=== PATIENT | male | born 1955 | race African-American/Black ===

== ENCOUNTER 2016-09-01 08:05 | Day surgery (SDC) | payer OTHER ==
[~2016-09-01] VITALS: Ht 160 cm; Wt 75.0 kg
[~2016-09-01 08:05] MED LIST: ASPI-1093 PO; LISI-660 PO; PROPOFOL 1% 20 ML VIAL IVP ONE
[2016-09-01] MEDS ORDERED: SODIUM CHLORIDE 0.9% 1,000 ML IV ONE ×2 (08:08→08:30)
[2016-09-01] MEDS ORDERED: FERR-89 PO (08:18)
[2016-09-01] MEDS ORDERED: LISI1TAB9 PO (08:18)
[2016-09-01] MEDS ORDERED: VITAD1000 PO (08:18)
[2016-09-01] MEDS ORDERED: MIDAZOLAM HCL 5 MG/ML VIAL ONE (09:52)
[2016-09-01] MEDS ORDERED: FentaNYL CITRATE-PF 100 MCG/2 ML VIAL ONE (09:52)
[2016-09-01] MEDS ORDERED: LIDOCAINE HCL 2% VISCOUS 15 ML SOLUTION UDCUP PO ONE (10:00)
== END 2016-09-01 11:35 | disposition home or self-care (01) ==
LOC: SURGERY 08:05
PROVIDERS: ATTEND Internal Medicine Gastroenterology
DX: K29.70 Gastritis, unspecified, without bleeding (principal); K44.9 Diaphragmatic hernia without obstruction or gangrene; D64.9 Anemia, unspecified; J45.909 Unspecified asthma, uncomplicated; F17.200 Nicotine dependence, unspecified, uncomplicated; Z88.0 Allergy status to penicillin; Z72.89 Other problems related to lifestyle; Z86.79 Personal history of other diseases of the circulatory system
CPT/HCPCS: 88305; 88312; J2250; J2704; J3010; J7030

== ENCOUNTER 2016-09-07 15:26 | Inpatient (IN) | payer OTHER ==
[~2016-09-07] VITALS: Ht 160 cm; Wt 93.6 kg
[~2016-09-07 15:26] MED LIST changes: +FERR-89 PO; -LISI-660 PO; +LISI1TAB9 PO; -PROPOFOL 1% 20 ML VIAL IVP ONE; +VITAD1000 PO
[2016-09-07] MEDS ORDERED: HEPARIN SODIUM 25000 UNITS/D5W 250 ML IV PRN ×2 (17:39→21:00)
[2016-09-07] MEDS ORDERED: HEPARIN SODIUM,PORCINE 5,000 UNITS/ML VIAL IVP ONE ×2 (17:45)
[2016-09-07] MEDS ORDERED: HEPARIN SODIUM,PORCINE 5,000 UNITS/ML VIAL IVP PRN ×4 (17:45→21:00)
[2016-09-07 18:01] LABS: BASOPHILS % (AUTO) 0.6 % (0.0-2.0); EOSINOPHILS % (AUTO) 1.7 % (1.0-6.0); HEMATOCRIT 25.2 % (41-53); HEMOGLOBIN 7.6 g/dL (13.5-17.5); LYMPHOCYTES # (AUTO) 1.7 K/uL (1.0-4.8); LYMPHOCYTES % (AUTO) 11.8 % (22.0-44.0); MEAN CORPUSCULAR HEMOGLOBIN 20.5 pg (26.0-34.0); MEAN CORPUSCULAR HGB CONC 30.1 G/dL (31.0-37.0); MEAN CORPUSCULAR VOLUME 68 fL (80-100); MONOCYTES # (AUTO) 1.1 K/uL (0.1-1.0); MONOCYTES % (AUTO) 7.7 % (2.0-9.0); NEUTROPHILS # (AUTO) 11.3 K/uL (1.8-7.7); NEUTROPHILS % (AUTO) 78.2 % (40.0-70.0); PLATELET COUNT (AUTO) 333 K/uL (150-450); WHITE BLOOD COUNT (AUTO) 14.5 K/uL (4.5-11.0)
[2016-09-07 18:18] LABS: INR 1.1 (0.9-1.1); PROTHROMBIN TIME 11.5 SEC (9.4-11.6)
[2016-09-07 18:20] LABS: CALCIUM, TOTAL 10.1 mg/dL (8.8-10.5); CREATININE 1.45 mg/dL (0.60-1.30); POTASSIUM 4.7 mmol/L (3.5-5.1)
[2016-09-07 18:25] LABS: ALBUMIN 2.9 g/dL (3.4-5.0); BILIRUBIN,TOTAL 0.2 mg/dL (0.1-1.0); TOTAL PROTEIN, SERUM 7.7 g/dL (6.4-8.2)
[2016-09-07] MEDS ORDERED: ACETAMINOPHEN 325 MG TABLET PO PRN ×2 (19:30→21:00)
[2016-09-07] MEDS ORDERED: ONDANSETRON HCL 4 MG/2 ML VIAL IVP PRN (19:30)
[2016-09-07] MEDS ORDERED: 0.9% SODIUM CHLORIDE 10 ML SYRINGE IVP PRN (19:30)
[2016-09-07 20:42] VITALS: BP 125/71
[2016-09-07] MEDS ORDERED: MAGNESIUM HYDROXIDE SUSPENSION 30 ML UDCUP PO PRN (21:00)
[2016-09-07] MEDS ORDERED: ALBUTEROL SULFATE 2.5 MG/0.5 ML NEB SOLUTION NEB PRN (21:00)
[2016-09-07] MEDS: PANTOPRAZOLE SODIUM 40 MG/VIAL IVP SCH (21:39)
[2016-09-07] MEDS: DOCUSATE SODIUM 100 MG CAPSULE PO SCH (21:39)
[2016-09-07 22:15] VITALS: BP 110/73
[2016-09-08 04:24] VITALS: BP 109/72
[2016-09-08] MEDS: OxyCODONE HCL/ACETAMINOPHEN 5-325 MG TABLET PO PRN ×3 (05:28→20:24)
[2016-09-08 06:34] LABS: BASOPHILS % (AUTO) 0.5 % (0.0-2.0); EOSINOPHILS % (AUTO) 1.2 % (1.0-6.0); HEMATOCRIT 24.3 % (41-53); HEMOGLOBIN 7.1 g/dL (13.5-17.5); LYMPHOCYTES # (AUTO) 1.4 K/uL (1.0-4.8); LYMPHOCYTES % (AUTO) 11.3 % (22.0-44.0); MEAN CORPUSCULAR HEMOGLOBIN 20.1 pg (26.0-34.0); MEAN CORPUSCULAR HGB CONC 29.4 G/dL (31.0-37.0); MEAN CORPUSCULAR VOLUME 69 fL (80-100); MONOCYTES # (AUTO) 1.1 K/uL (0.1-1.0); MONOCYTES % (AUTO) 8.5 % (2.0-9.0); NEUTROPHILS # (AUTO) 9.9 K/uL (1.8-7.7); NEUTROPHILS % (AUTO) 78.5 % (40.0-70.0); PLATELET COUNT (AUTO) 360 K/uL (150-450); RED BLOOD CELL COUNT(AUTO) 3.54 MIL/uL (4.50-5.90); RED CELL DISTRIBUTION WIDTH 25.3 % (11.5-14.5); WHITE BLOOD COUNT (AUTO) 12.6 K/uL (4.5-11.0)
[2016-09-08 07:57] VITALS: BP 103/60
[2016-09-08] MEDS: DOCUSATE SODIUM 100 MG CAPSULE PO SCH ×2 (08:19→20:22)
[2016-09-08] MEDS: PANTOPRAZOLE SODIUM 40 MG/VIAL IVP SCH (08:19)
[2016-09-08] MEDS: FERROUS SULFATE 325 MG EC TABLET PO SCH ×3 (08:19→18:09)
[2016-09-08 09:46] LABS: RBC MORPHOLOGY COMMENT ABNORMAL RBC MORPH
[2016-09-08 09:53] LABS: ANION GAP 8 mmol/L (8-16); CALCIUM, TOTAL 9.6 mg/dL (8.8-10.5); CARBON DIOXIDE 29 mmol/L (22-29); CHLORIDE 100 mmol/L (98-107); CREATININE 1.26 mg/dL (0.60-1.30); GLOMERULAR FILTR. RATE CALC > 60 mL/min (>60); POTASSIUM 4.8 mmol/L (3.5-5.1); SODIUM SERUM 137 mmol/L (136-145); UREA NITROGEN, BLOOD 26 mg/dL (7-18)
[2016-09-08 12:16] VITALS: BP 103/69
[2016-09-08] MEDS ORDERED: IOVERSOL 350 MG/ML 100 ML VIAL ONE (12:27)
[2016-09-08] MEDS ORDERED: SODIUM CHLORIDE 0.9% 100 ML ONE (12:27)
[2016-09-08] MEDS ORDERED: BARIUM SULFATE 0.1% SUSPENSION 450 ML BOTTLE ONE (12:27)
[2016-09-08] MEDS: APIXABAN 5 MG TABLET PO SCH ×2 (13:00→18:09)
[2016-09-08 15:36] VITALS: BP 105/58
[2016-09-08 19:55] VITALS: BP 103/69
[2016-09-08 23:25] VITALS: BP 97/66
[2016-09-09 04:15] VITALS: BP 110/72
[2016-09-09 07:01] LABS: BASOPHILS % (AUTO) 0.1 % (0.0-2.0); EOSINOPHILS % (AUTO) 2.2 % (1.0-6.0); HEMATOCRIT 24.4 % (41-53); HEMOGLOBIN 7.3 g/dL (13.5-17.5); LYMPHOCYTES # (AUTO) 1.6 K/uL (1.0-4.8); LYMPHOCYTES % (AUTO) 13.5 % (22.0-44.0); MEAN CORPUSCULAR HEMOGLOBIN 20.5 pg (26.0-34.0); MEAN CORPUSCULAR HGB CONC 29.8 G/dL (31.0-37.0); MEAN CORPUSCULAR VOLUME 69 fL (80-100); MONOCYTES # (AUTO) 1.1 K/uL (0.1-1.0); NEUTROPHILS # (AUTO) 9.2 K/uL (1.8-7.7); NEUTROPHILS % (AUTO) 75.2 % (40.0-70.0); PLATELET COUNT (AUTO) 350 K/uL (150-450); RED BLOOD CELL COUNT(AUTO) 3.55 MIL/uL (4.50-5.90); RED CELL DISTRIBUTION WIDTH 25.3 % (11.5-14.5); WHITE BLOOD COUNT (AUTO) 12.2 K/uL (4.5-11.0)
[2016-09-09 07:10] VITALS: BP 105/67
[2016-09-09] MEDS: APIXABAN 5 MG TABLET PO SCH (07:10)
[2016-09-09 07:14] LABS: RBC MORPHOLOGY COMMENT ABNORMAL RBC MORPH
[2016-09-09] MEDS: FERROUS SULFATE 325 MG EC TABLET PO SCH ×3 (07:54→18:01)
[2016-09-09] MEDS: DOCUSATE SODIUM 100 MG CAPSULE PO SCH ×2 (07:54→20:32)
[2016-09-09] MEDS: PANTOPRAZOLE SODIUM 40 MG/VIAL IVP SCH (07:54)
[2016-09-09] MEDS: OxyCODONE HCL/ACETAMINOPHEN 5-325 MG TABLET PO PRN ×2 (09:49→15:55)
[2016-09-09 11:00] VITALS: BP 96/62
[2016-09-09 15:03] VITALS: BP 103/76
[2016-09-09] MEDS ORDERED: SOD FERRIC GLUC COMPLX/SUCROSE 125 MG in SODIUM CHLORIDE 0.9% 100 ML IV SCH (18:00)
[2016-09-09] MEDS ORDERED: SODIUM CHLORIDE 0.9% 250 ML IV ONE (18:06)
[2016-09-09 19:35] VITALS: BP 98/65
[2016-09-09] MEDS ORDERED: ENOXAPARIN SODIUM 80 MG/0.8 ML PF SYRINGE SQ SCH (21:00)
[2016-09-09 23:00] VITALS: BP 105/69
[2016-09-10 04:13] VITALS: BP 103/58
[2016-09-10 07:20] VITALS: BP 108/68
[2016-09-10 11:00] VITALS: BP 106/79
[2016-09-10] MEDS: FERROUS SULFATE 325 MG EC TABLET PO SCH ×2 (12:00→13:27)
[2016-09-10] MEDS ORDERED: SODIUM CHLORIDE 0.9% 1,000 ML IV ONE (12:13)
[2016-09-10] MEDS: OxyCODONE HCL/ACETAMINOPHEN 5-325 MG TABLET PO PRN (13:27)
[2016-09-10] MEDS: DOCUSATE SODIUM 100 MG CAPSULE PO SCH (13:27)
[2016-09-10] MEDS: PANTOPRAZOLE SODIUM 40 MG/VIAL IVP SCH (13:27)
[2016-09-10] MEDS ORDERED: ENOXAPARIN SODIUM 80 MG/0.8 ML PF SYRINGE SQ ONE (13:45)
[2016-09-10] MEDS ORDERED: ENOX80DI9 SQ (16:12)
[2016-09-10] MEDS ORDERED: DSS100 PO (16:30)
[2016-09-10] MEDS ORDERED: HYDR-309 PO (16:30)
[2016-09-10 16:37] LABS: CARCINOEMBRYONIC AG 28.3 ng/mL (0.0-4.7)
[2016-09-10] MEDS ORDERED: PHENYLEPHRINE HCL 10 MG/ML VIAL IVP ONE (17:19)
[2016-09-10] MEDS ORDERED: LIDOCAINE HCL/PF 2% 5 ML VIAL INJ ONE (17:19)
== END 2016-09-10 17:20 | disposition home or self-care (01) | DRG 374 ==
LOC: EMS 15:27 → EEVIPCON 17:56 → 5S 17:56 → 6N 22:15
PROVIDERS: ADMIT Internal Medicine; ATTEND Internal Medicine
PROC: 0DBA8ZX Excision of Jejunum, Via Natural or Artificial Opening Endoscopic, Diagnostic (ICD-10-PCS; 2016-09-10)
PROC: 0DB98ZX Excision of Duodenum, Via Natural or Artificial Opening Endoscopic, Diagnostic (ICD-10-PCS; principal; 2016-09-10 10:30)
DX: C17.0 Malignant neoplasm of duodenum (principal); I26.99 Other pulmonary embolism without acute cor pulmonale; I82.401 Acute embolism and thrombosis of unspecified deep veins of right lower extremity; C78.7 Secondary malignant neoplasm of liver and intrahepatic bile duct; D50.9 Iron deficiency anemia, unspecified; D72.829 Elevated white blood cell count, unspecified; K63.89 Other specified diseases of intestine; I10 Essential (primary) hypertension; F17.210 Nicotine dependence, cigarettes, uncomplicated; E04.2 Nontoxic multinodular goiter; R31.0 Gross hematuria; R63.4 Abnormal weight loss; Z68.36 Body mass index [BMI] 36.0-36.9, adult; Z79.82 Long term (current) use of aspirin; Z88.0 Allergy status to penicillin; Z79.899 Other long term (current) drug therapy; Z71.6 Tobacco abuse counseling; Z80.3 Family history of malignant neoplasm of breast; Z80.0 Family history of malignant neoplasm of digestive organs
CPT/HCPCS: 71260; 72193; 74160; 82105; 82378; 82728; 83540; 83550; 86301; 93005; 93971; 96365; 96375; 99285; 99406; C9113; J1644; J1650; J2370; J2916; J3490; J7030; J7050

== ENCOUNTER → 2016-09-13 | Outpatient (CLI) | payer OTHER ==
[~2016-09-13] MED LIST changes: +DSS100 PO; +ENOX80DI9 SQ; +HYDR-309 PO
[2016-09-13 15:25] LABS: BASOPHILS % (AUTO) 0.4 % (0.0-2.0); EOSINOPHILS % (AUTO) 1.4 % (1.0-6.0); HEMATOCRIT 28.7 % (41-53); HEMOGLOBIN 8.3 g/dL (13.5-17.5); LYMPHOCYTES # (AUTO) 2.9 K/uL (1.0-4.8); LYMPHOCYTES % (AUTO) 17.4 % (22.0-44.0); MEAN CORPUSCULAR HEMOGLOBIN 20.3 pg (26.0-34.0); MEAN CORPUSCULAR VOLUME 70 fL (80-100); MONOCYTES # (AUTO) 0.9 K/uL (0.1-1.0); MONOCYTES % (AUTO) 5.7 % (2.0-9.0); NEUTROPHILS # (AUTO) 12.3 K/uL (1.8-7.7); NEUTROPHILS % (AUTO) 75.1 % (40.0-70.0); PLATELET COUNT (AUTO) 598 K/uL (150-450); RED BLOOD CELL COUNT(AUTO) 4.09 MIL/uL (4.50-5.90); WHITE BLOOD COUNT (AUTO) 16.4 K/uL (4.5-11.0)
== END | disposition home or self-care (01) ==
LOC: LABPV 13:33
PROVIDERS: ATTEND Internal Medicine
DX: I26.99 Other pulmonary embolism without acute cor pulmonale (principal); I82.401 Acute embolism and thrombosis of unspecified deep veins of right lower extremity

== ENCOUNTER 2016-12-25 12:56 | Inpatient (IN) | payer MEDICAID, OTHER ==
[~2016-12-25] VITALS: Ht 167.6 cm; Wt 57.1 kg
[2016-12-25] MEDS ORDERED: BARIUM SULFATE 0.1% SUSPENSION 450 ML BOTTLE PO ONE (13:30)
[2016-12-25] MEDS ORDERED: ONDANSETRON HCL 4 MG/2 ML VIAL IVP ONE ×2 (13:30→15:45)
[2016-12-25] MEDS ORDERED: FAMOTIDINE 10 MG/ML 2 ML VIAL IVP ONE (13:30)
[2016-12-25] MEDS ORDERED: SODIUM CHLORIDE 0.9% 1,000 ML IV ONE (13:30)
[2016-12-25 13:51] LABS: BASOPHILS # (AUTO) 0.05 K/uL (0.00-0.20); BASOPHILS % (AUTO) 0.4 % (0.0-2.0); EOSINOPHILS # (AUTO) 0.07 K/uL (0.00-0.70); EOSINOPHILS % (AUTO) 0.57 % (1.0-6.0); HEMATOCRIT 43.6 % (41-53); HEMOGLOBIN 13.3 g/dL (13.5-17.5); LYMPHOCYTES # (AUTO) 1.3 K/uL (1.0-4.8); LYMPHOCYTES % (AUTO) 10.1 % (22.0-44.0); MEAN CORPUSCULAR HGB CONC 30.5 G/dL (31.0-37.0); MEAN CORPUSCULAR VOLUME 79 fL (80-100); MONOCYTES # (AUTO) 1.5 K/uL (0.1-1.0); MONOCYTES % (AUTO) 11.5 % (2.0-9.0); NEUTROPHILS # (AUTO) 9.8 K/uL (1.8-7.7); NEUTROPHILS % (AUTO) 77.5 % (40.0-70.0); PLATELET COUNT (AUTO) 542 K/uL (150-450); RED BLOOD CELL COUNT(AUTO) 5.54 MIL/uL (4.50-5.90); RED CELL DISTRIBUTION WIDTH 34.6 % (11.5-14.5); WHITE BLOOD COUNT (AUTO) 12.7 K/uL (4.5-11.0)
[2016-12-25 14:02] LABS: INR 1.1 (0.9-1.1); PROTHROMBIN TIME 11.1 SEC (9.4-11.6)
[2016-12-25] MEDS ORDERED: METOCLOPRAMIDE HCL 5 MG/ML 2 ML VIAL IVP ONE (14:15)
[2016-12-25] MEDS ORDERED: IOVERSOL 350 MG/ML 150 ML VIAL ONE (14:15)
[2016-12-25] MEDS ORDERED: SODIUM CHLORIDE 0.9% 100 ML ONE (14:15)
[2016-12-25 14:48] LABS: ANION GAP 5 mmol/L (8-16); CALCIUM, TOTAL 9.9 mg/dL (8.8-10.5); CARBON DIOXIDE 37 mmol/L (22-29); CHLORIDE 99 mmol/L (98-107); CREATININE 1.22 mg/dL (0.60-1.30); GLOMERULAR FILTR. RATE CALC > 60 mL/min (>60); POTASSIUM 3.9 mmol/L (3.5-5.1); SODIUM SERUM 141 mmol/L (136-145); UREA NITROGEN, BLOOD 14 mg/dL (7-18)
[2016-12-25 15:02] LABS: ALANINE AMINOTRANSFERASE 37 U/L (12-78); ALBUMIN 2.9 g/dL (3.4-5.0); ASPARTATE AMINOTRANSFERASE 40 U/L (15-37); BILIRUBIN,TOTAL 0.4 mg/dL (0.1-1.0); TOTAL PROTEIN, SERUM 7.9 g/dL (6.4-8.2)
[2016-12-25 19:16] LABS: APPEARANCE,URINE CLEAR (CLEAR); GLUCOSE, URINE (UA) NEGATIVE (NEGATIVE); KETONES,URINE NEGATIVE (NEGATIVE); LEUKOCYTE ESTERASE ,URINE NEGATIVE (NEGATIVE); OCCULT BLOOD,URINE NEGATIVE (NEGATIVE); PROTEIN,URINE POS 1+ (NEGATIVE)
[2016-12-25 19:32] LABS: ADD UA MICROSCOPIC NO
[2016-12-25 20:30] VITALS: BP 106/78
[2016-12-25] MEDS ORDERED: ACETAMINOPHEN 325 MG TABLET PO PRN (20:45)
[2016-12-25] MEDS ORDERED: ALBUTEROL SULFATE 2.5 MG/0.5 ML NEB SOLUTION NEB PRN (20:45)
[2016-12-25] MEDS ORDERED: BISACODYL 10 MG RECTAL RECTAL SUPPOSITORY PR PRN (20:45)
[2016-12-25] MEDS: PANTOPRAZOLE SODIUM 40 MG/VIAL IVP SCH (21:23)
[2016-12-25] MEDS: MAGNESIUM HYDROXIDE SUSPENSION 30 ML UDCUP PO PRN (21:23)
[2016-12-25] MEDS: ENOXAPARIN SODIUM 40 MG/0.4 ML PF SYRINGE SQ SCH (21:24)
[2016-12-25] MEDS: SODIUM CHLORIDE 0.9% 1,000 ML IV SCH (21:24)
[2016-12-25] MEDS: DOCUSATE SODIUM 100 MG CAPSULE PO SCH (21:24)
[2016-12-25 23:27] VITALS: BP 101/69
[2016-12-26] MEDS: ONDANSETRON HCL 4 MG/2 ML VIAL IVP PRN ×3 (03:03→20:04)
[2016-12-26] MEDS: MORPHINE SULFATE 4 MG/ML SYRINGE IVP PRN ×3 (03:09→20:04)
[2016-12-26 04:50] VITALS: BP 110/74
[2016-12-26 06:07] LABS: BASOPHILS % (AUTO) 0.5 % (0.0-2.0); EOSINOPHILS % (AUTO) 0.6 % (1.0-6.0); HEMATOCRIT 42.4 % (41-53); HEMOGLOBIN 12.7 g/dL (13.5-17.5); LYMPHOCYTES # (AUTO) 1.2 K/uL (1.0-4.8); LYMPHOCYTES % (AUTO) 9.6 % (22.0-44.0); MEAN CORPUSCULAR HEMOGLOBIN 23.9 pg (26.0-34.0); MEAN CORPUSCULAR VOLUME 80 fL (80-100); MONOCYTES # (AUTO) 1.8 K/uL (0.1-1.0); MONOCYTES % (AUTO) 14.2 % (2.0-9.0); NEUTROPHILS # (AUTO) 9.6 K/uL (1.8-7.7); NEUTROPHILS % (AUTO) 75.1 % (40.0-70.0); PLATELET COUNT (AUTO) 552 K/uL (150-450); RED BLOOD CELL COUNT(AUTO) 5.32 MIL/uL (4.50-5.90); RED CELL DISTRIBUTION WIDTH 34.3 % (11.5-14.5); WHITE BLOOD COUNT (AUTO) 12.8 K/uL (4.5-11.0)
[2016-12-26 06:25] LABS: ALANINE AMINOTRANSFERASE 33 U/L (12-78); ALBUMIN 2.8 g/dL (3.4-5.0); ANION GAP 6 mmol/L (8-16); ASPARTATE AMINOTRANSFERASE 39 U/L (15-37); BILIRUBIN,TOTAL 0.4 mg/dL (0.1-1.0); CALCIUM, TOTAL 9.7 mg/dL (8.8-10.5); CARBON DIOXIDE 35 mmol/L (22-29); CHLORIDE 99 mmol/L (98-107); CREATININE 1.26 mg/dL (0.60-1.30); GLOMERULAR FILTR. RATE CALC > 60 mL/min (>60); POTASSIUM 3.6 mmol/L (3.5-5.1); SODIUM SERUM 140 mmol/L (136-145); TOTAL PROTEIN, SERUM 7.9 g/dL (6.4-8.2); UREA NITROGEN, BLOOD 15 mg/dL (7-18)
[2016-12-26 07:12] VITALS: BP 108/75
[2016-12-26] MEDS: PANTOPRAZOLE SODIUM 40 MG/VIAL IVP SCH (08:56)
[2016-12-26] MEDS: DOCUSATE SODIUM 100 MG CAPSULE PO SCH ×2 (08:57→20:04)
[2016-12-26] MEDS: ENOXAPARIN SODIUM 40 MG/0.4 ML PF SYRINGE SQ SCH ×2 (08:57→20:05)
[2016-12-26 11:24] VITALS: BP 110/77
[2016-12-26 11:28] LABS: RBC MORPHOLOGY COMMENT ABNORMAL RBC MORPH
[2016-12-26] MEDS: SODIUM CHLORIDE 0.9% 1,000 ML IV SCH (11:29)
[2016-12-26] MEDS: MAGNESIUM HYDROXIDE SUSPENSION 30 ML UDCUP PO PRN (15:01)
[2016-12-26 15:10] VITALS: BP 103/70
[2016-12-26 19:20] VITALS: BP 108/72
[2016-12-26] MEDS: DEXTROSE 5%-0.45% SODIUM CHL 1,000 ML IV SCH (22:18)
[2016-12-26 23:11] VITALS: BP_SYST 12; BP_SYST 122; BP_DIAS 83
[2016-12-27 04:47] VITALS: BP 104/72
[2016-12-27 07:42] VITALS: BP 110/74
[2016-12-27] MEDS: ENOXAPARIN SODIUM 40 MG/0.4 ML PF SYRINGE SQ SCH ×2 (07:56→20:28)
[2016-12-27] MEDS: DOCUSATE SODIUM 100 MG CAPSULE PO SCH ×2 (07:56→20:26)
[2016-12-27] MEDS: ONDANSETRON HCL 4 MG/2 ML VIAL IVP PRN (07:56)
[2016-12-27] MEDS: PANTOPRAZOLE SODIUM 40 MG/VIAL IVP SCH (07:56)
[2016-12-27] MEDS: MORPHINE SULFATE 4 MG/ML SYRINGE IVP PRN (11:05)
[2016-12-27] MEDS: DEXTROSE 5%-0.45% SODIUM CHL 1,000 ML IV SCH (11:13)
[2016-12-27 11:32] VITALS: BP 126/59
[2016-12-27 16:39] VITALS: BP 106/70
[2016-12-27 19:24] VITALS: BP 108/68
[2016-12-27 23:43] VITALS: BP 104/69
[2016-12-28] MEDS: DEXTROSE 5%-0.45% SODIUM CHL 1,000 ML IV SCH ×2 (01:50→20:53)
[2016-12-28 05:28] VITALS: BP 114/75
[2016-12-28 06:06] LABS: ALANINE AMINOTRANSFERASE 26 U/L (12-78); ALBUMIN 2.2 g/dL (3.4-5.0); ANION GAP 3 mmol/L (8-16); ASPARTATE AMINOTRANSFERASE 38 U/L (15-37); BILIRUBIN,TOTAL 0.3 mg/dL (0.1-1.0); CALCIUM, TOTAL 8.1 mg/dL (8.8-10.5); CARBON DIOXIDE 33 mmol/L (22-29); CHLORIDE 99 mmol/L (98-107); CREATININE 1.07 mg/dL (0.60-1.30); GLOMERULAR FILTR. RATE CALC > 60 mL/min (>60); POTASSIUM 3.2 mmol/L (3.5-5.1); SODIUM SERUM 135 mmol/L (136-145); TOTAL PROTEIN, SERUM 6.3 g/dL (6.4-8.2); UREA NITROGEN, BLOOD 9 mg/dL (7-18)
[2016-12-28 07:41] VITALS: BP 101/73
[2016-12-28] MEDS ORDERED: POTASSIUM CHLORIDE 20 MEQ ER TABLET PO PRN (08:00)
[2016-12-28] MEDS: PANTOPRAZOLE SODIUM 40 MG/VIAL IVP SCH (08:19)
[2016-12-28] MEDS: POTASSIUM CHL 10 MEQ/WATER 50 ML IV PRN ×4 (08:36→22:00)
[2016-12-28] MEDS: DOCUSATE SODIUM 100 MG CAPSULE PO SCH ×2 (09:00→20:53)
[2016-12-28] MEDS: ONDANSETRON HCL 4 MG/2 ML VIAL IVP PRN ×2 (11:41→20:53)
[2016-12-28] MEDS: ENOXAPARIN SODIUM 40 MG/0.4 ML PF SYRINGE SQ SCH (11:42)
[2016-12-28 11:49] VITALS: BP 127/85
[2016-12-28] MEDS ORDERED: FentaNYL CITRATE-PF 100 MCG/2 ML VIAL ONE ×2 (14:50→18:17)
[2016-12-28] MEDS ORDERED: MIDAZOLAM HCL 2 MG/2 ML VIAL ONE (14:51)
[2016-12-28 14:56] LABS: INR 1.1 (0.9-1.1); PROTHROMBIN TIME 11.4 SEC (9.4-11.6)
[2016-12-28 15:03] VITALS: BP 122/83
[2016-12-28] MEDS ORDERED: LIDOCAINE HCL/PF 1% 30 ML VIAL ONE ×2 (15:20→17:59)
[2016-12-28] MEDS ORDERED: IOHEXOL 240 MG/ML 50 ML VIAL ONE (15:20)
[2016-12-28] MEDS ORDERED: HEPARIN SODIUM 1000 UNITS/NS 500 ML ONE (15:20)
[2016-12-28] MEDS ORDERED: FLUMAZENIL 0.1 MG/ML 5 ML VIAL IVP ONE (15:57)
[2016-12-28] MEDS ORDERED: NALOXONE HCL 0.4 MG/ML VIAL ONE (15:57)
[2016-12-28] MEDS ORDERED: MIDAZOLAM HCL 2 MG/2 ML VIAL IVP ONE (16:50)
[2016-12-28] MEDS ORDERED: GELATIN SPONGE,ABSORBABLE 12-7 MM TP ONE ×2 (17:45→17:46)
[2016-12-28] MEDS ORDERED: HYDROmorphone 2 MG/ML SYRINGE IVP ONE (17:47)
[2016-12-28] MEDS ORDERED: IOHEXOL 300 MG/ML 10 ML VIAL ONE (17:51)
[2016-12-28] MEDS ORDERED: IOHEXOL 180 MG/ML 20 ML VIAL ONE ×3 (17:51→18:10)
[2016-12-28] MEDS ORDERED: FentaNYL CITRATE-PF 100 MCG/2 ML VIAL IVP ONE (18:19)
[2016-12-28 19:40] VITALS: BP 96/66
[2016-12-28 20:54] VITALS: BP 113/73
[2016-12-28] MEDS: HYDROmorphone 2 MG/ML SYRINGE IVP PRN (20:54)
[2016-12-28] MEDS: ENOXAPARIN SODIUM 60 MG/0.6 ML PF SYRINGE SQ SCH (22:09)
[2016-12-29] VITALS (7 sets, daily range): BP systolic 10–103; BP diastolic 62–79
[2016-12-29] MEDS: POTASSIUM CHL 10 MEQ/WATER 50 ML IV PRN ×2 (00:06→01:50)
[2016-12-29] MEDS: HYDROmorphone 2 MG/ML SYRINGE IVP PRN ×7 (02:48→19:48)
[2016-12-29] MEDS: CIPROFLOXACIN 400 MG/D5% WATER 200 ML IV SCH ×3 (04:44→15:59)
[2016-12-29] MEDS: ONDANSETRON HCL 4 MG/2 ML VIAL IVP PRN ×3 (08:04→22:06)
[2016-12-29] MEDS: ENOXAPARIN SODIUM 60 MG/0.6 ML PF SYRINGE SQ SCH ×2 (08:07→19:47)
[2016-12-29] MEDS: PANTOPRAZOLE SODIUM 40 MG/VIAL IVP SCH (08:07)
[2016-12-29] MEDS: DOCUSATE SODIUM 100 MG CAPSULE PO SCH ×2 (08:07→19:47)
[2016-12-29] MEDS: DEXTROSE 5%-0.45% SODIUM CHL 1,000 ML IV SCH (11:00)
[2016-12-30] MEDS: HYDROmorphone 2 MG/ML SYRINGE IVP PRN ×7 (00:02→23:55)
[2016-12-30] MEDS: DEXTROSE 5%-0.45% SODIUM CHL 1,000 ML IV SCH (00:03)
[2016-12-30 00:17] VITALS: BP 87/62
[2016-12-30] MEDS: ONDANSETRON HCL 4 MG/2 ML VIAL IVP PRN ×3 (03:42→16:45)
[2016-12-30] MEDS: CIPROFLOXACIN 400 MG/D5% WATER 200 ML IV SCH ×2 (03:42→15:07)
[2016-12-30 06:00] LABS: ALANINE AMINOTRANSFERASE 26 U/L (12-78); ALBUMIN 2.3 g/dL (3.4-5.0); ANION GAP 3 mmol/L (8-16); ASPARTATE AMINOTRANSFERASE 33 U/L (15-37); BILIRUBIN,TOTAL 0.6 mg/dL (0.1-1.0); CARBON DIOXIDE 31 mmol/L (22-29); CHLORIDE 97 mmol/L (98-107); GLOMERULAR FILTR. RATE CALC > 60 mL/min (>60); POTASSIUM 3.8 mmol/L (3.5-5.1); SODIUM SERUM 131 mmol/L (136-145); TOTAL PROTEIN, SERUM 6.7 g/dL (6.4-8.2); UREA NITROGEN, BLOOD 10 mg/dL (7-18)
[2016-12-30 07:20] VITALS: BP 92/62
[2016-12-30] MEDS: DOCUSATE SODIUM 100 MG CAPSULE PO SCH ×2 (08:28→21:22)
[2016-12-30] MEDS: PANTOPRAZOLE SODIUM 40 MG/VIAL IVP SCH (08:29)
[2016-12-30] MEDS: ENOXAPARIN SODIUM 60 MG/0.6 ML PF SYRINGE SQ SCH ×2 (08:30→21:22)
[2016-12-30] MEDS ORDERED: FentaNYL CITRATE-PF 100 MCG/2 ML VIAL ONE ×3 (08:42→11:22)
[2016-12-30] MEDS ORDERED: MIDAZOLAM HCL 2 MG/2 ML VIAL ONE (08:43)
[2016-12-30] MEDS ORDERED: LIDOCAINE HCL/PF 1% 30 ML VIAL ONE (08:43)
[2016-12-30] MEDS ORDERED: IOHEXOL 240 MG/ML 50 ML VIAL ONE ×2 (09:00→10:42)
[2016-12-30] MEDS ORDERED: MIDAZOLAM HCL 2 MG/2 ML VIAL IVP ONE (09:50)
[2016-12-30] MEDS ORDERED: HEPARIN SODIUM 1000 UNITS/NS 500 ML ONE (10:24)
[2016-12-30] MEDS ORDERED: FentaNYL CITRATE-PF 100 MCG/2 ML VIAL IVP ONE (11:21)
[2016-12-30 12:00] VITALS: BP 124/86
[2016-12-30 16:11] VITALS: BP 124/93
[2016-12-30 19:30] VITALS: BP 103/66
[2016-12-30 23:21] VITALS: BP 112/59
[2016-12-31] MEDS: DEXTROSE 5%-0.45% SODIUM CHL 1,000 ML IV SCH ×3 (01:41→15:24)
[2016-12-31] MEDS: CIPROFLOXACIN 400 MG/D5% WATER 200 ML IV SCH ×2 (02:56→15:00)
[2016-12-31 04:48] VITALS: BP 109/55
[2016-12-31] MEDS: HYDROmorphone 2 MG/ML SYRINGE IVP PRN ×4 (04:52→22:37)
[2016-12-31] MEDS: ONDANSETRON HCL 4 MG/2 ML VIAL IVP PRN ×3 (04:58→16:55)
[2016-12-31 07:52] VITALS: BP 104/62
[2016-12-31] MEDS: PANTOPRAZOLE SODIUM 40 MG/VIAL IVP SCH (08:16)
[2016-12-31] MEDS: ENOXAPARIN SODIUM 60 MG/0.6 ML PF SYRINGE SQ SCH ×2 (08:25→22:31)
[2016-12-31] MEDS: DOCUSATE SODIUM 100 MG CAPSULE PO SCH ×2 (09:00→22:30)
[2016-12-31 12:00] VITALS: BP 101/67
[2016-12-31 15:32] VITALS: BP 105/68
[2016-12-31 19:30] VITALS: BP 108/65
[2016-12-31 23:54] VITALS: BP 97/72
[2017-01-01] MEDS: CIPROFLOXACIN 400 MG/D5% WATER 200 ML IV SCH (03:14)
[2017-01-01 05:12] VITALS: BP 99/75
[2017-01-01 07:38] VITALS: BP_SYST 137; BP_SYST 97; BP_DIAS 65; BP_DIAS 94
[2017-01-01] MEDS: DOCUSATE SODIUM 100 MG CAPSULE PO SCH (08:25)
[2017-01-01] MEDS: PANTOPRAZOLE SODIUM 40 MG/VIAL IVP SCH (08:25)
[2017-01-01] MEDS: ENOXAPARIN SODIUM 60 MG/0.6 ML PF SYRINGE SQ SCH (08:26)
[2017-01-01] MEDS: ONDANSETRON HCL 4 MG/2 ML VIAL IVP PRN ×2 (08:33→12:54)
[2017-01-01] MEDS: HYDROmorphone 2 MG/ML SYRINGE IVP PRN ×2 (08:34→12:45)
[2017-01-01 11:28] VITALS: BP 101/72
== END 2017-01-01 13:30 | disposition home or self-care (01) | DRG 261 ==
LOC: EMS 12:58 → 6N 18:12 → UNDOADMIN 18:24 → 6N 18:24
PROVIDERS: ADMIT Internal Medicine; ATTEND Internal Medicine
PROC: BF131ZZ Fluoroscopy of Gallbladder and Bile Ducts using Low Osmolar Contrast (ICD-10-PCS; principal; 2016-12-28)
PROC: 0F9430Z Drainage of Gallbladder with Drainage Device, Percutaneous Approach (ICD-10-PCS; 2016-12-28)
PROC: BF131ZZ Fluoroscopy of Gallbladder and Bile Ducts using Low Osmolar Contrast (ICD-10-PCS; 2016-12-30)
DX: C25.9 Malignant neoplasm of pancreas, unspecified (principal); E43 Unspecified severe protein-calorie malnutrition; K56.60 Unspecified intestinal obstruction; I82.403 Acute embolism and thrombosis of unspecified deep veins of lower extremity, bilateral; C78.00 Secondary malignant neoplasm of unspecified lung; C78.7 Secondary malignant neoplasm of liver and intrahepatic bile duct; K59.00 Constipation, unspecified; I10 Essential (primary) hypertension; F17.210 Nicotine dependence, cigarettes, uncomplicated; Z68.20 Body mass index [BMI] 20.0-20.9, adult; Z51.5 Encounter for palliative care; Z88.0 Allergy status to penicillin; Z79.899 Other long term (current) drug therapy; Z79.891 Long term (current) use of opiate analgesic; Z79.82 Long term (current) use of aspirin; Z86.711 Personal history of pulmonary embolism; Z92.21 Personal history of antineoplastic chemotherapy; Z86.718 Personal history of other venous thrombosis and embolism; Z82.49 Family history of ischemic heart disease and other diseases of the circulatory system; Z80.9 Family history of malignant neoplasm, unspecified
CPT/HCPCS: 36245; 47556; 74177; 74249; 75984; 76937; 76942; 84132; 96361; 96374; 96375; 96376; 99285; C9113; J0744; J1170; J1644; J1650; J2250; J2270; J2310; J2405; J2765; J3010; J3480; J3490; J7030; J7050; Q9965; Q9966; Q9967